=== PATIENT | male | born 1980 | race Caucasian/White ===

== ENCOUNTER 2016-09-02 23:05 | Emergency (ER) | payer SELFPAY ==
[~2016-09-02] VITALS: Ht 162.6 cm; Wt 57.5 kg
[2016-09-02 23:12] VITALS: Ht 162.6 cm; Wt 57.5 kg
[2016-09-03] MEDS ORDERED: LIDOCAINE 2% (MDV) 20 ML INJ INJ ONE (00:30)
[2016-09-03] MEDS ORDERED: ACET325T33 PO (00:51)
--- NOTE | 2016-09-03 00:58 | ERA ---
ER Documentation Chief Complaint Date/Time DATE: 09/03/16 TIME: 00:54 Chief Complaint laceration right hand HPI This is a 36-year-old otherwise healthy male presenting one hour status post laceration from breaking glass with hand. Patient punched glass and glass broke and given an abrasion on the hand. Patient denies loss of motion, numbness, tingling, discharge, uncontrolled bleeding or excessive pain. Has not taken any medications to resolve the symptoms. Has been to Band-Aids to control the bleeding. Patient has no other complaints at this time and denies any other associated manifestations. Tetanus status unknown. ROS All systems reviewed and are negative except as per history of present illness. Medications Home Meds Active Scripts Acetaminophen* (Tylenol*) 325 Mg Tablet, 1 TAB PO Q6 Y for PAIN AND OR ELEVATED TEMP, #20 TAB Prov:ALEXI SALAS PA-C 09/03/16 Allergies Allergies: Coded Allergies: No Known Allergy (Unverified , 09/02/16) PMhx/Soc Medical and Surgical Hx: pt denies Medical Hx, pt denies Surgical Hx History of Surgery: No (DENIES MEDICAL AND SURGICAL HX.) Hx Alcohol Use: No Hx Substance Use: No Hx Tobacco Use: No Smoking Status: Never smoker Physical Exam Vitals Vital Signs Date Time Temp Pulse Resp B/P Pulse Ox O2 Delivery O2 Flow Rate FiO2 09/02/16 23:12 97.7 80 20 125/88 98 Physical Exam Const: Healthy-appearing. Well-nourished. Well-developed. No acute distress. Head: Normocephalic, Atraumatic. Eyes: Non-injected; No scleral erythema, discharge or foreign body. EOMI and JACK bilaterally. Ears: Normal External Ears, EACs clear, TM normal bilaterally without erythema. Nose: Normal nose without discharge, septal deviation, or sinus tenderness. Oral: No oral edema visualized. Mucous membranes moist and pink. Neck: No cervical lymphadenopathy, masses or goiter palpated. Full range of motion. Supple. Trachea midline. ~ No meningismus. Pulm: Good air movement in upper and lower respiratory tracts. No dyspnea, stridor, tripoding or drooling. Clear to auscultation bilaterally. Cardio: Regular rate and rhythm; No murmurs, gallops or rubs auscultated. No JVD grossly observed. Radial and posterior tibial pulses 2+ bilaterally. No cyanosis. Capillary refill less than 2 seconds. Abd: Soft, non tender, non distended. No guarding, masses. Normal bowel sounds. No McBurney's point tenderness. MS: Normal motor strength, normal tone with gross examination. Skin: As noted in extremity examination per no petechiae or rashes. No ulcer, induration, jaundice. Good turgor. Back: No midline, flank or CVA tenderness. Ext: Laceration versus epithelial abrasion of sagittal midline ulnar- sided hand laceration. No cyanosis, or edema. Normal movement of all extremities grossly observed. Neur: Awake, alert and oriented x3. Neurovascularly intact bilaterally. Psych: Normal Mood and Affect. Results 24 hrs Current Medications Medications (Trade) Dose Ordered Sig/Georgina Route PRN Reason Start Time Stop Time Status Last Admin Dose Admin Lidocaine (Xylocaine 2% (Mdv) 20 ml) 20 ml ONCE ONCE INJ 09/03/16 00:30 09/03/16 00:51 DC Diphtheria/ Tetanus/Acell Pertussis (Adacel) 0.5 ml ONCE ONCE IM* 09/03/16 01:00 09/03/16 01:01 Procedures/MDM This is a 36-year-old male who presents 1-2 hours status post laceration to the ulnar side of the right hand. There is no loss of motion and no evidence of neurovascular compromise. Patient's laceration is not deep and borders and a line of abrasion. Patient will be given a tetanus shot since his tetanus status is unknown. Patient does not need antibiotics at this time as it is a clean wound and he has no comorbid conditions. The wound has been cleaned with normal saline and bacitracin applied and gauze bandage applied. No sign of infection. Patient's vitals are stable and his current condition is appropriate for discharge. Will be discharged at this time with discharge instructions return precautions. Departure Diagnosis: Primary Impression: Laceration Condition: Stable Patient Instructions: Wound Care Additional Instructions: Follow up with your PCP within the next 1-3 days for a more thorough evaluation and a possible referral to a specialist. Return the the emergency department immediately if symptoms worsen or change. If you have any questions regarding medications, ask your pharmacist or us before you leave. If any adverse reactions occur while taking your medications, discontinue the treatment and return to the emergency department immediately. Take your medications as directed, and complete the entire course of treatment. ALEXI SALAS PA-C Sep 03, 2016 00:58
[2016-09-03] MEDS ORDERED: DIPHTH/TET/ACEL PERTUSS (ADULT) 0.5 ML VIAL IM* ONE (01:00)
== END 2016-09-03 01:35 | disposition home or self-care (01) ==
LOC: FTE 23:05
DX: S61.411A Laceration without foreign body of right hand, initial encounter (principal); W25.XXXA Contact with sharp glass, initial encounter; Y92.9 Unspecified place or not applicable; Z23 Encounter for immunization
CPT/HCPCS: 90471; 90715